=== PATIENT | male | born 1985 | race Caucasian/White ===

== ENCOUNTER 2017-07-17 20:34 | Emergency (ER) | payer OTHER ==
--- NOTE | 2017-07-18 00:17 | ED ---
GI/ HPI - HPI Summary HPI Summary: Pt here w/ Lt pubic region swelling w/ standing - better w/ sitting. H/o B/L inguinal hernias repairs in his teens. Denies pain in this area and no fever, chills, N/V/D - still urinating and moving bowels well. He is mostly here for a referral to consult if he needs surgery or not. He does not have a PCP. - History of Current Complaint Chief Complaint: EDGeneral Time Seen by Provider: 07/17/17 21:03 Stated Complaint: GROIN PAIN Hx Obtained From: Patient, Family/Porter Marina - female partner Pain Intensity: 3 - Allergy/Home Medications Allergies/Adverse Reactions: Allergies Allergy/AdvReac Type Severity Reaction Status Date / Time No Known Allergies Allergy Verified 07/17/17 20:59 PMH/Surg Hx/FS Hx/Imm Hx Infectious Disease History: No Infectious Disease History: Denies: Traveled Outside the [place] in Last 30 Days - Social History Alcohol Use: Occasionally Substance Use Type: Reports: None Smoking Status (MU): Heavy Every Day Tobacco Smoker Physical Exam Vital Signs On Initial Exam: Initial Vitals Temp Pulse Resp BP Pulse Ox 99.3 F 61 20 133/80 98 07/17/17 20:56 07/17/17 20:56 07/17/17 20:56 07/17/17 20:56 07/17/17 20:56 Diagnostics - Vital Signs Vital Signs Temp Pulse Resp BP Pulse Ox 07/17/17 20:56 99.3 F 61 20 133/80 98 - Laboratory Lab Statement: Any lab studies that have been ordered have been reviewed, and results considered in the medical decision making process. GIGU Course/Dx - Course Course Of Treatment: Testicular ultrasound impression: 1 cm left epididymis mass. Findings may reflect a small hematoma. Correlate with history of trauma is recommended. Solid masses such as sperm granulomas, cystadenoma or edema rheumatoid tumors remain in the differential consideration. Discussed results with patient and female tiler. They agree to follow-up with urology and return to emergency department if danger signs or symptoms present. They also agreed to contact general surgery to discuss patient's inguinal hernia on the left side. Again danger signs and symptoms reviewed of when to return to the emergency department. Discharge - Discharge Plan Condition: Stable Disposition: HOME Patient Education Materials: Inguinal Hernia (ED) Forms: *Work Release Referrals: [facility] [Outside] Manfred Bernardo MD [Medical Doctor] - No Primary Care Phys,NOPCP [Primary Care Provider] - Edgar Vieira MD [Medical Doctor] - Additional Instructions: You also appear to have a hernia. Please follow up with general surgeon on Thursday. Contact information provided here. Avoid heavy lifting, bearing down, etc. *If in the meantime this protrusion pops out and stays out, causes you pain, you have difficulty moving her bowels, you develop nausea/vomiting/diarrhea, fever or chills, return to the emergency department You appear to have a mass in your epididymis, a tube within the scrotum. It is important that you follow-up with urology for further evaluation. Call Thursday to schedule an appointment. Contact information provided here. *If in the meantime you develop pain, fever, swelling, blood in your urine, flank pain, abdominal pain, nausea, vomiting or diarrhea, return to the emergency department
[2017-07-18 01:12] VITALS: BP 114/73
--- NOTE | 2017-07-18 08:46 | RAD ---
INDICATION: Left scrotal "fullness" COMPARISON: None TECHNIQUE: Duplex interrogation of the scrotum was performed. FINDINGS: The testicles are normal in size and echogenicity. There is no evidence for testicular mass. The right testis measures 5.5 x 2.8 x 2.9 cm and the left 5.4 x 3.2 x 3.6 cm. There is symmetric flow on Doppler interrogation. Arterial and venous waveforms are identified bilaterally. The right epididymal head appears normal measuring 0.8 x 1.1 cm. The left epididymal head measures 1.1 x 1.6 cm and includes a mildly vascular echogenic lesion measuring 0.9 x 1.0 x 0.8 cm There are no hydroceles. There are no varicoceles. IMPRESSION: There is a 1 cm left epididymal head mass that could represent a hematoma in the setting of recent trauma. Solid masses such as a sperm granuloma, cystadenoma or adenomatoid tumors are also included in the differential diagnosis.
== END 2017-07-18 01:07 | disposition home or self-care (01) ==
LOC: ED 20:34
DX: N50.9 Disorder of male genital organs, unspecified (principal); Z72.0 Tobacco use
CPT/HCPCS: 76870; 99282

== ENCOUNTER 2017-07-22 09:01 | Day surgery (SDC) | payer OTHER ==
[~2017-07-22 09:01] MED LIST: Buffered Lidocaine 0.9% SYRIN* 5 ML/SYR SYRINGE INTRADERM ONE; Bupivacaine 0.25% SDV* 30 ML ONE
[2017-07-22] MEDS ORDERED: Buffered Lidocaine 0.9% SYRIN* 5 ML/SYR SYRINGE ONE (09:26)
[2017-07-22] MEDS ORDERED: ceFAZolin 2 GM PREMIX (*) 2 GM/50 ML BAG IVPB ONE (09:33)
[2017-07-22] MEDS ORDERED: Atracurium* 10 MG/ML 10 ML VIAL ONE (09:38)
[2017-07-22] MEDS ORDERED: fentaNYL* 50 MCG/ML 2 ML VIAL (100 MCG VIAL) ONE ×2 (09:38→09:59)
[2017-07-22] MEDS ORDERED: Propofol* 10 MG/ML 20 ML BTL IV PUSH ONE (09:38)
[2017-07-22] MEDS ORDERED: Midazolam* 1 MG/ML 5 ML VIAL (5 MG) ONE (09:38)
[2017-07-22] MEDS ORDERED: Ondansetron INJ* 2 MG/ML VIAL ONE (09:57)
[2017-07-22] MEDS ORDERED: Ketorolac INJ* 30 MG/ML 1 ML VIAL ONE (09:57)
[2017-07-22] MEDS ORDERED: Dexamethasone IV* 4 MG/ML 1 ML (4 MG) ONE ×2 (09:57)
[2017-07-22] MEDS ORDERED: oxyCODONE/Acetamin 5/325 MG* TAB PO PRN (10:19)
[2017-07-22] MEDS ORDERED: HYDROmorphone INJ* 1 MG/ML CARPUJECT SYRINGE IV PRN (10:19)
[2017-07-22] MEDS ORDERED: Naloxone* 0.4 MG/ML 1 ML VIAL IV PRN (10:19)
[2017-07-22] MEDS ORDERED: DiMENhydriNATE IV* 50 MG/ML VIAL IV PUSH PRN (10:19)
[2017-07-22] MEDS ORDERED: Ondansetron INJ* 2 MG/ML VIAL IV PRN (10:19)
[2017-07-22] MEDS ORDERED: fentaNYL* 50 MCG/ML 2 ML VIAL (100 MCG VIAL) IV PRN (10:19)
[2017-07-22] MEDS ORDERED: HYDROcodone/ACETAMIN 5-325 MG* 1 TAB PO PRN (10:19)
[2017-07-22] MEDS ORDERED: Neostigmine Methylsulfate* 1 MG/ML 10 ML VIAL (1 mg/ml) ONE (10:50)
[2017-07-22] MEDS ORDERED: Glycopyrrolate IV* 0.2 MG/ML 1 ML VIAL ONE (10:50)
[2017-07-22 13:03] VITALS: BP 104/61
--- NOTE | 2017-07-23 12:08 | OP ---
DATE OF OPERATION: 07/22/17 - [facility] DATE OF : 83 SURGEON: Manfred Bernardo MD. FOREIGN LANGUAGE TEACHER: Gladys Encarnacion NP. ANESTHESIOLOGIST: Dr. Schaeffer. ANESTHESIA: General anesthesia. PRE-OP DIAGNOSIS: Recurrent left inguinal hernia. POST-OP DIAGNOSIS: Recurrent left inguinal hernia. OPERATIVE PROCEDURE: Laparoscopic left inguinal hernia repair with mesh. ESTIMATED BLOOD LOSS: Minimal blood loss. IV FLUIDS: Minimal crystalloid fluid given. SPECIMEN: None. COUNTS: Lap, pad count and instrument counts are correct at the end of the procedure. DESCRIPTION OF PROCEDURE: The patient was identified in the preoperative area. He was marked. Consent was signed and he was taken back to the operating room , placed on the operating table in the supine position. Preoperative antibiotics were given. Sequential devices were placed on bilateral lower extremities. General anesthesia was induced. The patient's abdomen was prepped and draped in a standard surgical fashion. After her hair was clipped, a time-out was performed. An infraumbilical incision was made. This was deepened down to the anterior fascia on the right. This was incised and the rectus pillar was retracted laterally and entry into the preperitoneal plane was made. A blunt finger dissection was then utilized to make up the space. Next, a 12-mm trocar was inserted and the preperitoneal plane was allowed to insufflate to a pressure of 12 mmHg. Laparoscope was inserted through this and there was blunt dissection carried out to the pubic symphysis. We then placed two 5-mm trocars in the lower midline and additional dissection was then carried out to expose Edu's ligament on both left and right. With the epigastric vessels in superiorly, we opened up into Bogros space, taking care to gently drop the peritoneum posteriorly. A sac extended into the indirect space. This was bluntly dissected. At one point, we thought it tapered to nothing, and could not open this any more, so we cut it and noted that we were in a small area into the sac. We were able to bluntly dissect the sac posteriorly and expose the full myopectineal orifice. We then used 2-0 Vicryl Endoloop to cinch down on the opened up sac. A left-sided Bard 3D Max mesh was then placed into the preperitoneal plane and allowed to unfurl and tacked at Edu's ligament on the left and also laterally , it covered the floor of myopectineal orifice and we looked around, hemostasis was excellent. This peritoneal plane was allowed to collapse. The trocar was removed under direct vision. Next, we realized that there had been pneumoperitoneum, so we dissected down through the posterior fascia and then into the peritoneum allowing the air to escape. We then reapproximated the peritoneum with 2-0 Polysorb suture site, irrigated and reapproximated the anterior fascia with an 0 Polysorb suture in a [id number] fashion. Hemostasis was excellent and all three skin incisions were reapproximated with 4-0 Vicryl subcuticular suture, Steri-Strips and sterile dressings were applied. The patient tolerated the procedure well and was woken up in the OR and transferred to the PACU in stable condition. [id number]/CPS #: [id number] MTDD
== END 2017-07-22 13:29 | disposition home or self-care (01) ==
LOC: OR 09:01
PROVIDERS: ATTEND Surgery
DX: K40.91 Unilateral inguinal hernia, without obstruction or gangrene, recurrent (principal); N50.89 Other specified disorders of the male genital organs; F17.210 Nicotine dependence, cigarettes, uncomplicated
CPT/HCPCS: C1781; J0690; J1100; J1885; J2250; J2405; J2704; J2710; J3010